=== PATIENT | male | born 1950 ===

== ENCOUNTER 2017-01-15 17:37 | Inpatient (IN) | payer MEDICAID ==
--- NOTE | ~2017-01-15 | PR ---
[place], [place] PROGRESS NOTE NAME: SMITA VALE UNIT #: [id number] ROOM: 317 DOCTOR: JAKUB CARLISLE MD BIRTHDATE: [birth year] DOS: 01/17/2017 CHIEF COMPLAINT: "Good morning. I am okay, thank you." SUMMARY OF THE VISIT: The patient was interviewed as he rested in bed. He initially had the covers pulled over his head, but as I entered his room and called his name, he chika them back and engaged in eye contact. He smiled readily and reported no complaints, stating that he slept well, had breakfast, but prefers to stay in bed at this point. He was not agitated or aggressive in any way. Nurses report that he does have some behaviors of wondering and exit seeking, but redirects fairly well. He also at times does seem to be rather fearful, but does not verbalize exactly what it is that he is afraid of. Despite reports that he is episodically noncompliant with his meds, his valproic acid level is high normal at 107.6, although I see no signs of Depakote toxicity. Screening examinations also reveal him to have a low vitamin D level of 10.9, I will start vitamin D 50,000 international units weekly. MENTAL STATUS: He is alert and oriented to self only. He is very confused. He does seem somewhat euthymic this morning, although nurses report, he can be labile. He has a great deal of processing difficulty and is very slow to respond and his responses tend to be short and simple. Short-term memory is very poor. PLAN: As mentioned above, I will start him on vitamin D due to the low vitamin D level. We will start vitamin D 50,000 international units q. week. I will increase his Exelon patch from 4.6 to 9.5 mg a day. Continue to monitor and support, engage in individual and mcdonald milieu therapy, returning to [facility] when psychiatrically stable. JAKUB CARLISLE MD CM:PNTRANS [phone] JAKUB CARLISLE MD 01/17/17 1246 interface
--- NOTE | ~2017-01-15 | DS ---
[place], [place] DISCHARGE SUMMARY NAME: SMITA VALE UNIT #: [id number] ROOM: 317 DOCTOR: JAKUB CARLISLE MD BIRTHDATE: [birth year] DOS: 01/26/2017 CHIEF COMPLAINT: The patient is nonverbal. HISTORY OF PRESENT ILLNESS: This is a 66-year-old black male from [facility] in [place], [place], presenting now to the [facility] due to increased agitation and aggression. The patient is becoming increasingly more aggressive toward staff. He has had a decrease in his ADLs. He has been refusing medical care and refusing oral meds. He has been actively exit-seeking and when redirected becomes increasingly more combative. His confusion is such that he has become incontinent of both bowel and bladder. He cannot be redirected. Attempts to adjust his medicines have been unsuccessful. He is admitted now to rule out organic factors and to attempt to stabilize on medication. PAST MEDICAL HISTORY: Remarkable for anemia, abdominal aortic aneurysm, CVA, incontinence, hypertension and Alzheimer's dementia. SUMMARY OF HOSPITAL COURSE: The patient was admitted to the unit where his Remeron was decreased from 30 to 15 mg at bedtime to help him sleep better and eat better. Additionally, his Depakote was found to be subtherapeutic at 250 mg 3 times a day, so the dose was doubled to 500 mg 3 times a day. Additionally, his Exelon was started at 4.6 mg a day and increased to 13.3 mg a day while the Namenda was maintained at 10 mg twice a day. The patient had a high serum ammonia level, so lactulose 30 g a day was started. Repeat was still high, so it was increased to twice daily and just prior to discharge, it was repeated and found to be 87. The [facility]ci will be told to continue to monitor this closely. With this combination of medication, the patient did improve. He was able to be redirected more readily and his episodes of verbal and physical aggression dissipated to about nothing. He tolerated the medicine well. There was no sedation or somnolence noted. Sleep and appetite normalized. He had improved sufficiently to return back to [facility]. MENTAL STATUS AT DISCHARGE: The patient is alert and oriented to self. He still remains fairly nonverbal, but pleasant. He would engage in eye contact and mumbles some words that were not able to be made out. He was pleasant, however, and smiled readily. There is no agitation. DIAGNOSES: Major depression, recurrent with psychotic features and Alzheimer's dementia. PLAN: Will discharge to [facility]. His prescriptions have been printed and will be sent with him. I will follow him upon his return there. [place], [place] DISCHARGE SUMMARY NAME: SMITA VALE UNIT #: [id number] ROOM: [facility] DOCTOR: JAKUB CARLISLE MD BIRTHDATE: [birth year] JAKUB CARLISLE MD CM:DISCHARG [phone] JAKUB CARLISLE MD 01/26/17 1435 interface
--- NOTE | ~2017-01-15 | PR ---
[place], [place] PROGRESS NOTE NAME: SMITA VALE UNIT #: [id number] ROOM: 317 DOCTOR: ALLA ENGEL BIRTHDATE: [birth year] DOS: 01/21/2017 CHIEF COMPLAINT: Nonverbal. SUMMARY OF VISIT: The patient was assessed as he was walking the [place] this morning, he was nonverbal with me. No eye contact at all. He continues to refuse all meds during the certain shifts. MENTAL STATUS: He is alert and oriented to person. I do not know about place or time. There are no overt signs of auditory or visual hallucinations, delusions, paranoia, srinivas or hypomania. PLAN: He is B12 deficient I will go ahead and order a B12 injection. His valproic acid level came back in the therapeutic range today it is 76.7 it was supratherapeutic on 01/17/2017 at 107.6, so it has definitely come down. We will continue with the current medications, try to engage in individual and mcdonald milieu therapy and discharge when stable. CHASTITY ENGEL CNP CM:PNTRANS [phone] ALLA ENGEL 01/21/17 1040 interface
--- NOTE | ~2017-01-15 | PR ---
[place], [place] PROGRESS NOTE NAME: SMITA VALE UNIT #: [id number] ROOM: 317 DOCTOR: ALLA ENGEL BIRTHDATE: [birth year] DOS: 01/20/2017 CHIEF COMPLAINT: "Good morning." SUMMARY OF VISIT: The patient was interviewed in the dining room where he is sitting in a reclining chair. He engaged readily in conversation. He is always a little bit standoffish, but his responses are appropriate. Nurses note that he continues to refuse meds at times and when he is incontinent is when his behaviors and aggression comes out. MENTAL STATUS: He is alert and oriented to person, I think place, I am unsure about time. No overt signs of auditory or visual hallucinations, delusions, paranoia, srinivas, or hypomania. My only concern is related to these behaviors that are focused around him being incontinent, I do not know if this is an embarrassment thing. I do not know if something in the past has happened either in his childhood or another facility related to him being incontinent. I will get with nursing and see if we can get some kind of protocol in place, toileting protocol and may be when he is incontinent, allow him sometime in his room to calm down before attempting to change him because it becomes a javier and his behaviors escalate. It should be noted that on the , his valproic acid level came back at 107.6 and this is even with him refusing some of his Depakote. I am going to check his valproic acid level tomorrow to see where he is at. He is a very large man as far as height, he may just be metabolizing it differently. PLAN: I am going to keep his medications where they are at right now, he shows no symptoms of toxicity with the Depakote. I will check a valproic acid level in the morning. We will continue to try to engage in individual and mcdonald milieu therapy. Let see if we can get him on some type of toileting procedure, maybe desensitize him to the occasions when he is incontinent, but then also allow him some time to calm down before trying to change him. CHASTITY ENGEL CNP CM:PNTRANS [phone] ALLA ENGEL 01/20/17 1214 interface
--- NOTE | ~2017-01-15 | PR ---
[place], [place] PROGRESS NOTE NAME: SMITA VALE UNIT #: [id number] ROOM: 317 DOCTOR: ALLA ENGEL BIRTHDATE: [birth year] DOS: 01/22/2017 CHIEF COMPLAINT: Nonverbal initially. SUMMARY OF VISIT: The patient was interviewed in his room where I engaged him in conversation. He did not respond initially, made good eye contact, smiled, when I asked how he was doing today I continued to smile at him, he looked at me and smiled back and said okay this is the first verbalization I have gotten out of him in a couple of days, very pleasant, smiling, still continues to walk the [place] per nursing, no voiced complaints or staff. MENTAL STATUS: Alert and oriented to person only at this time, maybe place, not time. No overt signs of auditory or visual hallucinations, delusions, paranoia, srinivas or hypomania. PLAN: We will continue with current medications. The Depakote is in the therapeutic range. We will continue to try to engage in individual and mcdonald milieu therapy, redirect when possible continue with the toileting that we are doing, this seems to take a lot of distress off his incontinence and we will go from there. CHASTITY ENGEL CNP CM:PNANA LAURA [phone] ALLA ENGEL 01/22/17 1417 interface
--- NOTE | ~2017-01-15 | PR ---
[place], [place] PROGRESS NOTE NAME: SMITA VALE UNIT #: [id number] ROOM: 317 DOCTOR: JAKUB CARLISLE MD BIRTHDATE: [birth year] DOS: 01/18/2017 CHIEF COMPLAINT: The patient was nonverbal, but was standing next to the exit door and would not move. HISTORY OF THE PRESENT ILLNESS OR SUMMARY OF THE VISIT: The patient was interviewed or attempted to be interviewed as he stood within 3 feet from the exit door to the unit. He just stood there. We did attempt to get him in a wheelchair because he was ordered an abdominal ultrasound despite multiple attempts to intervene and to get him to sit in the wheelchair. He stood there and did not move, he mouthed words, but no sound came out of his mouth. He did not attempt to move and did not attempt to engage in any other way. Nurses report similar behavior. He continues to pace frequently and continues to exit seek and test doors. He wanders in and out of other resident's rooms. He is fairly redirectable and at other times it may take nursing staff multiple attempts to get him to respond to redirection. MENTAL STATUS: My mental status is limited due to the fact that the patient was nonverbal. PLAN: At the present time, we will increase Exelon patch to its maximum dose of 13.3 mg daily. Reviewing his labs show him to have an elevated ammonia level at 40, he is on lactulose 30 g daily. I will go ahead and increase this to 30 g twice a day, his vitamin B12 level is low normal, so I will go ahead and do a vitamin B12 injection of 1000 mcg IM today. We will engage in individual and mcdonald milieu activity. The ultimate plan is to return back to [facility] when stable. JAKUB CARLISLE MD CM:PNTRANS [phone] JAKUB CARLISLE MD 01/18/172149 interface
--- NOTE | ~2017-01-15 | PR ---
[place], [place] PROGRESS NOTE NAME: SMITA VALE UNIT #: [id number] ROOM: 317 DOCTOR: JAKUB CARLISLE MD BIRTHDATE: [birth year] DOS: 01/25/2017 CHIEF COMPLAINT: The patient was nonverbal. SUMMARY OF THE VISIT: The patient was attempted to be interviewed as he rested in bed. As I called his name, he did make eye contact, but he did not speak. He was pleasant, but confused. He did not exhibit any type of agitation or mood debility. He may know effort to speak to me, however. MENTAL STATUS: Limited due to his inability or lack of cooperation. He was pleasant and he did not show any signs of agitation or aggression. There was no mood debility and there were no overt signs of psychosis, I was unable to test memory due to his lack of verbalizations. PLAN: At the present time, I will recheck a serum ammonia level, his last level was high at 40. We will make certain that the ____ is at an acceptable dose to start bringing this down. We will maintain his other psychotropics. Continue to attempt the best to engage him in individual and mcdonald milieu activity with the ultimate plan to return him back to [facility] when psychiatrically stable. JAKUB CARLISLE MD CM:PNTRANS [phone] JAKUB CARLISLE MD 01/25/17 1105 interface
--- NOTE | ~2017-01-15 | PR ---
[place], [place] PROGRESS NOTE NAME: SMITA VALE UNIT #: [id number] ROOM: 317 DOCTOR: ALLA ENGEL BIRTHDATE: [birth year] DOS: 01/23/2017 CHIEF COMPLAINT: "Hi." SUMMARY OF VISIT: The patient was assessed initially in the hallway and then in his room where he did engage in minimal 1-word statements. He smiled and said hi to me this morning and then answered yes to one of my questions. Very pleasant. Still walks the halls. No voiced complaints from nursing. They feel that he has been doing really well. MENTAL STATUS: He is alert and oriented to person, may be place, I do not think time. No overt signs of auditory or visual hallucinations, delusions, paranoia, srinivas or hypomania. PLAN: We are going to continue with the current medications as is. I feel that he is getting closer to his baseline. He is more redirectable, not having the meltdowns regarding toileting and incontinence that he was having before. He has definitely improved and is getting better. CHASTITY ENGEL CNP CM:PNTRANS [phone] ALLA ENGEL 01/23/17 1016 interface
--- NOTE | ~2017-01-15 | WRIGHTHP ---
[place], [place] PATIENT HISTORY AND PHYSICAL EXAM NAME: SMITA VALE UNIT #: [id number] ROOM: 317 DOCTOR: ALLA ENGEL BIRTHDATE: [birth year] DOS: 01/16/2017 This is an initial psych evaluation. HISTORY OF PRESENT ILLNESS: This is a 66-year-old male, presenting to the Behavioral Health Unit from [facility], 1 of our nursing facilities that we round at. Staff at the facility noted that he had had increased aggression, agitation, combativeness towards staff, decreased ADLs, refusing medical care and also refusing p.o. meds. Staff notes that his baseline is of confusion as well as urinary and fecal incontinence. The patient is primarily nonverbal, occasionally 1 or 2-word responses. Other than that, he just looks at you. No overt signs of auditory or visual hallucinations. Staff notes at times that he would not make eye contact with some of the male staff, even lowering his head at times. PAST MEDICAL HISTORY: Includes ambulatory dysfunction; anemia; thoracic aortic aneurysm without rupture; CVA; incontinence, urinary and fecal; hypertension and senile degeneration of the brain. DIAGNOSIS: AXIS I: Dementia with behavioral disturbances. MENTAL STATUS EXAMINATION: The patient is alert and oriented to person. I think to place. I do not know about time. Mood is depressed. There has been no physical or verbal aggression or combativeness towards us right now or since he has been here. Affect is flat, blunted and constricted range. No overt signs of auditory or visual hallucinations, delusions or paranoia, srinivas or hypomania. Cognitive deficits definitely noted. Labs, the patient's serum ammonia level was elevated, so I am going to treat with some lactulose. It should also be noted in the chart from the nursing facility on 01/12/2017, his valproic acid level was subtherapeutic at 33.4. He was on Depakote [address] Calixto increased that to 500 mg t.i.d. The patient was also on Namzaric at the nursing facility. He was only started on Namenda here. Since he has had a significant decline cognitively over the last month or so, we have reached out to the nursing staff. No additional CTs of the head or anything was run. The only thing they did was a few labs. I am going to go ahead and switch him from Aricept to Exelon to see if we can get better results with that since he has had such a decline. We are also trying to rule out urinary tract infection. PLAN: I am going to lower his Remeron to 15 mg at bedtime to get more of a histamine response, keep his appetite up, good sleep and help with depression. Also if he has any form of sundowning, hopefully this will help. He was originally on 30. Depakote, again Dr. Calixto increased to 500 mg t.i.d. since his labs at the nursing facility on 01/12/2017 were subtherapeutic. I will go ahead and check a valproic acid level on him and we could start from there. I added Exelon 4.6 mg every day. He is on Namenda 10 mg b.i.d., both for dementia. I am adding lactulose 30 grams once a day, and we will follow up on his serum ammonia level. Want to rule out UTI since the behaviors were acute and did not resolve. We will try to engage in individual and mcdonald milieu [place], [place] PATIENT HISTORY AND PHYSICAL EXAM NAME: SMITA VALE UNIT #: [id number] ROOM: 317 DOCTOR: ALLA ENGEL BIRTHDATE: [birth year] therapy. I do not know how effective this will be for this gentleman and we will see if any type of toileting protocol can help him with his urinary and fecal incontinence. We will continue to adjust meds. Long-term goal is to get him stable, returning back to [facility] where Dr. Calixto and myself will round on him. CHASTITY ENGEL CNP CM:HISPHYS:PATIENT HISTORY AND PHYSICAL EXAMINATION 8 ALLA ENGEL 01/18/17 0958 interface
--- NOTE | ~2017-01-15 | PR ---
[place], [place] PROGRESS NOTE NAME: SMITA VALE UNIT #: [id number] ROOM: 317 DOCTOR: ALLA ENGEL BIRTHDATE: [birth year] DOS: 01/24/2017 CHIEF COMPLAINT: The patient was nonverbal this morning. SUMMARY OF VISIT: The patient was assessed in his room where he was sleeping. I did manage to wake him up. He did nod and smile, but was overall nonverbal. No voiced complaints from nursing. MENTAL STATUS EXAMINATION: He is alert and oriented to person. I think to place, not to time. No overt signs of auditory or visual hallucinations, delusions or paranoia. PLAN: We will continue with the current medications. I think he is most likely at his baseline. He is on the maximum doses of Exelon and Namenda. His Depakote level is now therapeutic. It was supratherapeutic when he arrived and we adjusted it accordingly. He is doing better with regards to when he is incontinent, not having a meltdown. Staff is good about reminding him to go to the restroom and when he is incontinent, to allow him up a few moments to go to his room and calm down before cleaning him up. No behaviors since we have been starting the toileting protocol. We will continue to try to engage in individual and mcdonald milieu therapy. Most likely, the patient is as close to his baseline as he is going to be. We will see how he does over the next 24 hours and then plan to discharge as soon as possible. CHASTITY ENGEL CNP CM:PNTRANS [phone] ALLA ENGEL 01/24/17 1735 interface
[2017-01-15] MEDS ORDERED: COZAAR50 M1 PO (17:53)
[2017-01-15] MEDS ORDERED: DIVALPROEX SOD250 M1 PO (17:54)
[2017-01-15] MEDS ORDERED: IRON325 M2 PO (17:55)
[2017-01-15] MEDS ORDERED: NATURE'S BLEND F1 MG PO (17:55)
[2017-01-15] MEDS ORDERED: NAMENDA XR28 M1 PO (17:57)
[2017-01-15] MEDS ORDERED: REMERON30 M1 PO (17:57)
[2017-01-15] MEDS ORDERED: TAMSULOSIN HCL0.4 MG PO (17:58)
[2017-01-15] MEDS ORDERED: VITAMIN C500 M6 PO (17:58)
[2017-01-15 18:21] VITALS: BP 179/86
[2017-01-15 19:31] VITALS: BP 134/75
[2017-01-16 06:52] LABS: BASO % 0.4 % (0.0-1.0); EOS # 0.2 10*3/uL (0.0-0.4); EOS % 4.7 % (1.0-4.0); HEMATOCRIT 36.3 % (42.0-52.0); HEMOGLOBIN 11.3 g/dl (14.0-18.0); LYMPH # 1.2 10*3/uL (1.3-4.4); LYMPH % 26.1 % (27.0-41.0); MEAN CELL VOLUME 75.5 fl (80.0-94.0); MEAN CORPUSCULAR HGB 23.5 pg (27.0-31.0); MEAN CORPUSCULAR HGB CONC 31.1 g/dl (33.0-37.0); MONO # 0.6 10*3/uL (0.1-1.0); MONO % 11.9 % (3.0-9.0); NEUT # 2.6 10*3/uL (2.3-7.9); NEUT % 56.7 % (47.0-73.0); PLATELET COUNT AUTOMATED 176 10*3/uL (130-400); RED BLOOD COUNT 4.81 10*6/uL (4.50-5.90); RED CELL DISTRI WIDTH 14.9 % (0-14.5); WHITE BLOOD COUNT 4.6 10*3/uL (4.8-10.8)
[2017-01-16 07:06] LABS: ALBUMIN 3.1 gm/dl (3.1-4.5); ALKALINE PHOSPHATASE 89 U/L (45-117); BILIRUBIN, TOTAL 0.4 mg/dl (0.2-1.0); BUN 14 mg/dl (7-24); CARBON DIOXIDE 27 mmol/L (21-32); CHOLESTEROL 121 mg/dL (<200); EST GLOM FILT AFRICAN AMERICAN > 60 ml/min; GLUCOSE 74 mg/dL (65-99); HDL CHOLESTEROL 67 mg/dl (40-60); LDL CHOLESTEROL 47 mg/dL (9-159); SGOT/AST 10 IU/L (3-35); SGPT/ALT 13 U/L (12-78); TOTAL PROTEIN 6.5 gm/dL (6.4-8.2); TRIGLYCERIDES 35 mg/dl (<150); VLDL CHOLESTEROL 7 mg/dL (6-40)
[2017-01-16 07:24] LABS: CHLORIDE 109 mmol/L (98-107); POTASSIUM 3.7 mmol/L (3.5-5.1); SODIUM 147 mmol/L (136-145)
[2017-01-16 07:47] VITALS: BP 140/78
[2017-01-16 08:13] LABS: HEMOGLOBIN A1c 5.3 % (4.8-5.6)
[2017-01-16 09:40] LABS: VITAMIN D, 25-HYDROXY 10.9 ng/mL (30-100)
[2017-01-16 20:03] VITALS: BP 150/74
[2017-01-17 07:44] VITALS: BP 145/85
[2017-01-19 08:20] VITALS: BP 152/80
[2017-01-19 20:27] VITALS: BP 117/65
[2017-01-20 08:16] VITALS: BP 131/72
[2017-01-20 20:12] VITALS: BP 116/57
[2017-01-21 08:28] VITALS: BP 136/87
[2017-01-22 08:55] VITALS: BP 139/82
[2017-01-22 20:39] VITALS: BP 151/82
[2017-01-23 08:12] VITALS: BP 150/36
[2017-01-24 08:32] VITALS: BP 121/70
[2017-01-25 08:12] VITALS: BP 137/84
[2017-01-25 20:00] VITALS: BP 113/90
[2017-01-26 08:23] VITALS: BP 134/84
[2017-01-26] MEDS ORDERED: EXELON13.3 MG/21 T (09:17)
[2017-01-26] MEDS ORDERED: NAMENDA10 MG PO (09:17)
[2017-01-26] MEDS ORDERED: LACTULOSE20 GM/30 M PO (09:17)
[2017-01-26] MEDS ORDERED: DIVALPROEX SOD500 MG PO (09:17)
[2017-01-26] MEDS ORDERED: VITAMIN D50000 I3 PO (09:17)
[2017-01-26] MEDS ORDERED: MIRTAZAPINE15 M2 PO (09:17)
== END 2017-01-26 14:00 | disposition other institution (70) | DRG 57 ==
LOC: 3N 17:37
PROVIDERS: Psychiatry & Neurology Psychiatry
DX: G30.9 Alzheimer's disease, unspecified (principal); F02.81 Dementia in other diseases classified elsewhere, unspecified severity, with behavioral disturbance; I71.2 Thoracic aortic aneurysm, without rupture; F33.3 Major depressive disorder, recurrent, severe with psychotic symptoms; F23 Brief psychotic disorder; R32 Unspecified urinary incontinence; R15.9 Full incontinence of feces; I71.9 Aortic aneurysm of unspecified site, without rupture; D64.9 Anemia, unspecified; N40.0 Benign prostatic hyperplasia without lower urinary tract symptoms; I10 Essential (primary) hypertension; R26.9 Unspecified abnormalities of gait and mobility; Z79.899 Other long term (current) drug therapy; Z86.73 Personal history of transient ischemic attack (TIA), and cerebral infarction without residual deficits